=== PATIENT | female | born 1980 | race Caucasian/White ===

== ENCOUNTER 2017-06-25 18:04 | Inpatient (IN) ==
[~2017-06-25 18:04] MED LIST: Piperacillin/Tazobactam 3.375 GM in D5% in Water (Mini-Bag+) 100 ML IVPB ONE
[2017-06-25] MEDS ORDERED: 0.9 % Sodium Chloride 500 ML IVC ONE (18:09)
[2017-06-25] MEDS ORDERED: Piperacillin/Tazobactam 3.375 GM in D5% in Water (Mini-Bag+) 100 ML IVPB ONE (18:12)
--- NOTE | 2017-06-25 18:18 | Emergency Department Note ---
Disposition Clinical Impression: Cellulitis of left lower extremity Disposition: Admitted As Inpatient Condition: Good Referrals: NONE,PCP [Primary Care Provider] - Forms: Work/School Release, ED Satisfaction Letter Time of Disposition: 20:17 General Adult HPI - General Chief complaint: ED General Medical Stated complaint: felt faint Source: patient, EMS Limitations: no limitations - History of Present Illness HPI Narrative: Patient presents to the emergency department from work secondary to feeling lightheaded and dizzy as well as feeling generally ill. She states that she is not feeling well this afternoon though decided to go to work. She states that while she was at work she became lightheaded and dizzy and EMS was contacted. There was no syncope fall or injury. She states that she has generalized myalgias as well as some redness of the left lower extremity. She had been treated for cellulitis in this area in April. I reviewed her ED visit at that time, she had a Doppler which was negative for DVT and she was apparently treated successfully with Bactrim. She denies headache confusion or speech changes. She denies chest pain or shortness of breath. She denies abdominal pain nausea or vomiting. She denies dysuria or urinary frequency or urgency. She has had a cough that is been productive of some clear sputum. Denies hemoptysis. Pain Scale: 4 - Related Data Home Medications Medication Instructions Recorded Confirmed Estradiol [Estrace] 1 mg PO DAILY 11/19/15 06/25/17 Levothyroxine [Synthroid] 125 mcg PO 0630 11/19/15 06/25/17 Sulfamethoxazole/Trimeth DS 1 each PO BID 06/25/17 06/25/17 [Bactrim DS] glipiZIDE [Glipizide] 10 mg PO BID 06/25/17 06/25/17 metFORMIN [Glucophage] 500 mg PO BIDWM 06/25/17 06/25/17 Allergies Allergy/AdvReac Type Severity Reaction Status Date / Time No Known Allergies Allergy Verified 05/12/17 15:51 Constitutional: Reports: chills, weakness, other (Subjective fever) Eyes: Denies: eye pain, eye discharge, vision change ENT ED: Reports: congestion. Denies: ear pain, dysphagia Cardiovascular: Denies: chest pain, palpitations, dyspnea on exertion, orthopnea , edema, syncope Respiratory: Reports: cough. Denies: dyspnea, wheezes, hemoptysis Gastrointestinal: Denies: abdominal pain, nausea, vomiting, diarrhea, melena, hematochezia Genitourinary: Denies: urgency, dysuria, frequency, hematuria, discharge Musculoskeletal: Denies: back pain, neck pain, joint swelling Integumentary: Denies: rash Neurological: Denies: headache, weakness, numbness, paresthesias Endocrine: Reports: fatigue Hematological/Lymphatic: Denies: easy bleeding, easy bruising, lymphadenopathy Past Medical History - Past Medical History Source: patient Medical history: Reports: diabetes, migraine, thyroid disease Surgical history: Reports: (3), BERTHA/BSO Psychiatric history: Reports: no psych history [employer] history: Reports: endometriosis, bilateral tubal ligation - Social History Smoking Status: Never smoker Smokeless Tobacco Status: No Alcohol use: Reports: rarely Drug use: Reports: none Physical Exam - General Limitations: no limitations General appearance: alert, in no apparent distress (Resting comfortably cooperative and interactive and pleasant) - Head Head exam: atraumatic, normocephalic, normal inspection - Eye Eye exam: Present: normal appearance, PERRL, EOMI. Absent: scleral icterus, conjunctival injection - ENT ENT exam: normal exam, normal oropharynx, mucous membranes moist, TM's normal bilaterally - Neck Neck exam: Present: normal inspection, full ROM. Absent: tenderness, meningismus - Respiratory Respiratory exam: Present: normal lung sounds bilaterally - Cardiovascular Cardiovascular exam: Present: tachycardia, normal heart sounds - Abdominal Exam Abdominal exam: Present: soft, Non-Tender, normal bowel sounds. Absent: tenderness, distention, guarding, rebound, rigidity - Extremities Exam Extremities exam: Present: other (Trace edema bilateral lower extremities, there is some erythema overlying the anterior aspect of the left lower extremity which is warm to touch. No proximal streaking. No crepitus or evidence of necrotizing fasciitis). Absent: joint swelling, calf tenderness - Back Exam Back exam: Absent: tenderness, CVA tenderness (R), CVA tenderness (L) - Neurological Exam Neurological exam: Present: alert, oriented X3 - Psychiatric Psychiatric exam: Present: normal affect, normal mood - Skin Skin exam: Present: other (As per lower extremity exam, skin exam is otherwise normal) Course Course Narrative: Time 2014: Heart rate 97, systolic blood pressure 95 patient resting comfortably and feels much improved. Patient does have a left lower extremity cellulitis, she has been given Zosyn IV ordered vancomycin. Repeat exam, heart regular rate and rhythm and lungs are clear. I have given her a total of 1.5 L of fluid at this time, saline will be continued 150 mL per hour, patient does not meet severe sepsis criteria. I discussed the case with Dr. Root, patient will be admitted to his service for ongoing evaluation and treatment. Patient has no evidence of intrathoracic or intra-abdominal infectious process. No evidence of encephalitis meningitis or spinal cord abscess. Vital Signs Temperature 103 F H 06/25/17 18:07 Pulse Rate 118 06/25/17 18:07 Respiratory Rate 18 06/25/17 18:07 Blood Pressure 131/71 06/25/17 18:07 O2 Sat by Pulse Oximetry 96 06/25/17 18:07 Temperature 103 F H 06/25/17 18:07 Pulse Rate 99 06/25/17 20:00 Respiratory Rate 18 06/25/17 20:00 Blood Pressure 96/50 06/25/17 20:00 O2 Sat by Pulse Oximetry 95 06/25/17 20:00 Oxygen Delivery Oxygen Delivery Room Air Medical Decision Making - Lab Data Lab results reviewed: Yes I reviewed the patient's lab results. Result diagrams: 06/25/17 18:30 06/25/17 18:30 Lab Results 06/25/17 06/25/17 06/25/17 Range/Units 18:30 18:30 18:30 WBC 10.4 D (4.3-11.1) K/mcL RBC 4.77 (3.82-4.97) M/mcL Hgb 13.9 (11.5-15.4) g/dL Hct 43.1 (35.3-44.9) % MCV 90.4 (83.0-100.0) fL MCH 29.1 (28.0-33.3) pg MCHC 32.3 (31.6-35.5) g/dL RDW 13.8 (11.5-14.5) % Plt Count 147 (140-400) K/mcL MPV 10.7 (9.4-12.4) fL Immature Gran % 1.1 (0-4) % Seg Neutrophils % 92.5 % Lymphocytes % 2.6 % Monocytes % 2.9 % Eosinophils % 0.4 % Basophils % 0.5 % Neutrophils # 9.6 H (1.6-8.9) K/mcL Lymphocytes # 0.3 L (0.6-4.6) K/mcL Monocytes # 0.3 (0.0-1.3) K/mcL Eosinophils # 0.0 (0.0-0.6) K/mcL Basophils # 0.1 (0.0-0.2) K/mcL PT 12.0 (9.4-12.1) Seconds INR 1.1 APTT 31.8 (26.0-36.0) Seconds VBG Lactic Acid (0.5-2.2) mmol/L Sodium (136-145) mEq/L Potassium (3.5-4.5) mEq/L Chloride (98-109) mEq/L Carbon Dioxide (19-29) mEq/L BUN (7-20) mg/dL Creatinine (0.57-1.11) mg/dL Est GFR ( Amer) (> 60) Est GFR (Non-Af Amer) (> 60) BUN/Creatinine Ratio (6-26) Glucose (70-99) mg/dL Calculated Osmolality (280-300) Calcium (8.6-10.8) mg/dL Total Bilirubin 0.7 (0.2-1.2) mg/dL Direct Bilirubin 0.3 (0.0-0.5) mg/dL Indirect Bilirubin 0.4 (0.0-1.2) mg/dL AST 80 H (5-34) Units/L ALT 44 (0-55) Units/L Alkaline Phosphatase 134 H (38-126) Units/L Troponin I (0-0.03) ng/mL Serum Total Protein 7.6 (6.0-8.3) g/dL Albumin 3.5 (3.5-5.0) g/dL Globulin 4.1 H (2.4-3.5) g/dL Albumin/Globulin Ratio 0.9 L (1.1-2.2) Lipase 21 (8-78) Units/L Urine Color (Yellow) Urine Clarity (Clear) Urine pH (5.0-8.0) pH Units Ur Specific Ruth (1.010-1.025) Urine Protein (Neg-Trace) mg/dL Urine Glucose (UA) (Normal) mg/dL Urine Ketones (Negative) mg/dL Urine Blood (Negative) Urine Nitrite (Negative) Urine Bilirubin (Negative) Urine Urobilinogen (Normal) mg/dL Ur Leukocyte Esterase (Negative) Urine Microscopic WBC (0-3) per hpf Ur Squamous Epith Cells (None-Few) per lpf Urine Bacteria (None-Few) per hpf Urine Mucus (Few) Ur Culture Indicated? (NO) Urine Test (Negative) 06/25/17 06/25/17 06/25/17 Range/Units 18:30 18:30 18:30 WBC (4.3-11.1) K/mcL RBC (3.82-4.97) M/mcL Hgb (11.5-15.4) g/dL Hct (35.3-44.9) % MCV (83.0-100.0) fL MCH (28.0-33.3) pg MCHC (31.6-35.5) g/dL RDW (11.5-14.5) % Plt Count (140-400) K/mcL MPV (9.4-12.4) fL Immature Gran % (0-4) % Seg Neutrophils % % Lymphocytes % % Monocytes % % Eosinophils % % Basophils % % Neutrophils # (1.6-8.9) K/mcL Lymphocytes # (0.6-4.6) K/mcL Monocytes # (0.0-1.3) K/mcL Eosinophils # (0.0-0.6) K/mcL Basophils # (0.0-0.2) K/mcL PT (9.4-12.1) Seconds INR APTT (26.0-36.0) Seconds VBG Lactic Acid 3.4 H (0.5-2.2) mmol/L Sodium 140 (136-145) mEq/L Potassium 4.1 (3.5-4.5) mEq/L Chloride 104 (98-109) mEq/L Carbon Dioxide 22 (19-29) mEq/L BUN 10 (7-20) mg/dL Creatinine 0.91 (0.57-1.11) mg/dL Est GFR ( Amer) > 60 (> 60) Est GFR (Non-Af Amer) > 60 (> 60) BUN/Creatinine Ratio 11 (6-26) Glucose 185 H (70-99) mg/dL Calculated Osmolality 294 (280-300) Calcium 9.3 (8.6-10.8) mg/dL Total Bilirubin (0.2-1.2) mg/dL Direct Bilirubin (0.0-0.5) mg/dL Indirect Bilirubin (0.0-1.2) mg/dL AST (5-34) Units/L ALT (0-55) Units/L Alkaline Phosphatase (38-126) Units/L Troponin I 0.01 (0-0.03) ng/mL Serum Total Protein (6.0-8.3) g/dL Albumin (3.5-5.0) g/dL Globulin (2.4-3.5) g/dL Albumin/Globulin Ratio (1.1-2.2) Lipase (8-78) Units/L Urine Color (Yellow) Urine Clarity (Clear) Urine pH (5.0-8.0) pH Units Ur Specific Ruth (1.010-1.025) Urine Protein (Neg-Trace) mg/dL Urine Glucose (UA) (Normal) mg/dL Urine Ketones (Negative) mg/dL Urine Blood (Negative) Urine Nitrite (Negative) Urine Bilirubin (Negative) Urine Urobilinogen (Normal) mg/dL Ur Leukocyte Esterase (Negative) Urine Microscopic WBC (0-3) per hpf Ur Squamous Epith Cells (None-Few) per lpf Urine Bacteria (None-Few) per hpf Urine Mucus (Few) Ur Culture Indicated? (NO) Urine Test (Negative) 06/25/17 06/25/17 Range/Units 19:00 19:00 WBC (4.3-11.1) K/mcL RBC (3.82-4.97) M/mcL Hgb (11.5-15.4) g/dL Hct (35.3-44.9) % MCV (83.0-100.0) fL MCH (28.0-33.3) pg MCHC (31.6-35.5) g/dL RDW (11.5-14.5) % Plt Count (140-400) K/mcL MPV (9.4-12.4) fL Immature Gran % (0-4) % Seg Neutrophils % % Lymphocytes % % Monocytes % % Eosinophils % % Basophils % % Neutrophils # (1.6-8.9) K/mcL Lymphocytes # (0.6-4.6) K/mcL Monocytes # (0.0-1.3) K/mcL Eosinophils # (0.0-0.6) K/mcL Basophils # (0.0-0.2) K/mcL PT (9.4-12.1) Seconds INR APTT (26.0-36.0) Seconds VBG Lactic Acid (0.5-2.2) mmol/L Sodium (136-145) mEq/L Potassium (3.5-4.5) mEq/L Chloride (98-109) mEq/L Carbon Dioxide (19-29) mEq/L BUN (7-20) mg/dL Creatinine (0.57-1.11) mg/dL Est GFR ( Amer) (> 60) Est GFR (Non-Af Amer) (> 60) BUN/Creatinine Ratio (6-26) Glucose (70-99) mg/dL Calculated Osmolality (280-300) Calcium (8.6-10.8) mg/dL Total Bilirubin (0.2-1.2) mg/dL Direct Bilirubin (0.0-0.5) mg/dL Indirect Bilirubin (0.0-1.2) mg/dL AST (5-34) Units/L ALT (0-55) Units/L Alkaline Phosphatase (38-126) Units/L Troponin I (0-0.03) ng/mL Serum Total Protein (6.0-8.3) g/dL Albumin (3.5-5.0) g/dL Globulin (2.4-3.5) g/dL Albumin/Globulin Ratio (1.1-2.2) Lipase (8-78) Units/L Urine Color Dark Yellow (Yellow) Urine Clarity Clear (Clear) Urine pH 5.5 (5.0-8.0) pH Units Ur Specific Ruth 1.020 (1.010-1.025) Urine Protein Negative (Neg-Trace) mg/dL Urine Glucose (UA) Normal (Normal) mg/dL Urine Ketones Trace H (Negative) mg/dL Urine Blood Negative (Negative) Urine Nitrite Negative (Negative) Urine Bilirubin Small H (Negative) Urine Urobilinogen Normal (Normal) mg/dL Ur Leukocyte Esterase Trace H (Negative) Urine Microscopic WBC 0-3 (0-3) per hpf Ur Squamous Epith Cells Few (None-Few) per lpf Urine Bacteria Few (None-Few) per hpf Urine Mucus Few (Few) Ur Culture Indicated? YES A (NO) Urine Test Negative (Negative) ITS Impressions Chest X-Ray 06/25/17 18:10 IMPRESSION: No acute process. D/ / Ryan Hanson MD / Ryan Hanson MD Interpreting Provider: Ryan Hanson MD - Radiology Data Radiology results reviewed: Yes I reviewed the patient's radiology results. - EKG Data EKG #1 EKG attestation: Yes I reviewed and interpreted this EKG. EKG shows normal: sinus rhythm Rate: tachycardia (Sinus tachycardia at a rate of 110. No acute ST segment or T -wave changes. No arrhythmia.)
[2017-06-25 18:39] LABS: Basophils # 0.1 K/mcL (0.0-0.2); Basophils % 0.5 %; Eosinophils % 0.4 %; Hematocrit 43.1 % (35.3-44.9); Hemoglobin 13.9 g/dL (11.5-15.4); Immature Granulocytes % 1.1 % (0-4); Lymphocytes # 0.3 K/mcL (0.6-4.6); Lymphocytes % 2.6 %; Mean Corpuscular HGB Conc 32.3 g/dL (31.6-35.5); Mean Corpuscular Hemoglobin 29.1 pg (28.0-33.3); Mean Corpuscular Volume 90.4 fL (83.0-100.0); Mean Platelet Volume 10.7 fL (9.4-12.4); Monocytes # 0.3 K/mcL (0.0-1.3); Monocytes % 2.9 %; Neutrophils # 9.6 K/mcL (1.6-8.9); Platelet Count 147 K/mcL (140-400); Red Blood Count 4.77 M/mcL (3.82-4.97); Red Cell Distribution Width 13.8 % (11.5-14.5); Segmented Neutrophils % 92.5 %
[2017-06-25 18:42] LABS: INR 1.1
[2017-06-25 18:45] LABS: Activated Partial Thrombo Time 31.8 Seconds (26.0-36.0)
[2017-06-25] MEDS ORDERED: 0.9 % Sodium Chloride 1,000 ML IVC ONE ×3 (18:48→18:53)
[2017-06-25 18:53] LABS: BUN/Creatinine Ratio 11 (6-26); Blood Urea Nitrogen 10 mg/dL (7-20); Calcium 9.3 mg/dL (8.6-10.8); Carbon Dioxide 22 mEq/L (19-29); Chloride 104 mEq/L (98-109); Glucose 185 mg/dL (70-99); Osmolality,Calculated 294 (280-300); Potassium 4.1 mEq/L (3.5-4.5); Sodium 140 mEq/L (136-145); eGFR For African Americans > 60 (> 60); eGFR For Non-African Americans > 60 (> 60)
[2017-06-25 18:54] LABS: Albumin 3.5 g/dL (3.5-5.0); Albumin/Globulin Ratio 0.9 (1.1-2.2); Bilirubin,Direct 0.3 mg/dL (0.0-0.5); Bilirubin,Indirect 0.4 mg/dL (0.0-1.2); Bilirubin,Total 0.7 mg/dL (0.2-1.2); Globulin 4.1 g/dL (2.4-3.5); Total Protein 7.6 g/dL (6.0-8.3)
[2017-06-25 19:07] LABS: Bilirubin,Urine Small (Negative); Blood,Urine Negative (Negative); Clarity,Urine Clear (Clear); Color,Urine Dark Yellow (Yellow); Glucose,Urine (UA) Normal (Normal); Ketones,Urine Trace mg/dL (Negative); Leukocyte Esterase,Urine Trace (Negative); Nitrite,Urine Negative (Negative); PH,Urine 5.5 pH Units (5.0-8.0); Protein,Urine Negative (Neg-Trace); Urobilinogen,Urine Normal (Normal)
[2017-06-25 19:16] LABS: Bacteria,Urine Few per hpf (None-Few); Mucus,Urine Few (Few); Squamous Epithelial Cell,Urine Few per lpf (None-Few); WBC,Urine 0-3 per hpf (0-3)
[2017-06-25] MEDS ORDERED: Vancomycin 1,750 MG in D5% in Water 250 ML IVPB ONE (20:14)
[2017-06-25] MEDS ORDERED: Naloxone 0.4 MG/ML INJ IVP PRN (20:17)
[2017-06-25] MEDS ORDERED: *HR* Enoxaparin 40 MG/0.4 ML SYRINGE SQ ONE (20:34)
[2017-06-25] MEDS ORDERED: Vancomycin 1,000 MG in D5% in Water 250 ML IVPB ONE (21:02)
[2017-06-25] MEDS: *HR* GlipiZIDE 5 MG TABLET PO SCH (21:37)
[2017-06-25] MEDS ORDERED: Vancomycin 750 MG in D5% in Water 250 ML IVPB ONE (22:30)
[2017-06-26 05:17] LABS: Basophils % 0.3 %; Eosinophils # 0.1 K/mcL (0.0-0.6); Eosinophils % 1.7 %; Hematocrit 36.3 % (35.3-44.9); Hemoglobin 12.1 g/dL (11.5-15.4); Immature Granulocytes % 0.5 % (0-4); Lymphocytes # 0.6 K/mcL (0.6-4.6); Lymphocytes % 9.2 %; Mean Corpuscular HGB Conc 33.3 g/dL (31.6-35.5); Mean Corpuscular Hemoglobin 30.2 pg (28.0-33.3); Mean Corpuscular Volume 90.5 fL (83.0-100.0); Mean Platelet Volume 11.2 fL (9.4-12.4); Monocytes # 0.3 K/mcL (0.0-1.3); Monocytes % 4.9 %; Neutrophils # 5.5 K/mcL (1.6-8.9); Platelet Count 128 K/mcL (140-400); Red Blood Count 4.01 M/mcL (3.82-4.97); Red Cell Distribution Width 14.1 % (11.5-14.5); Segmented Neutrophils % 83.4 %
[2017-06-26 05:33] LABS: BUN/Creatinine Ratio 14 (6-26); Blood Urea Nitrogen 10 mg/dL (7-20); Calcium 8.2 mg/dL (8.6-10.8); Carbon Dioxide 22 mEq/L (19-29); Chloride 108 mEq/L (98-109); Glucose 86 mg/dL (70-99); Osmolality,Calculated 288 (280-300); Potassium 4.1 mEq/L (3.5-4.5); Sodium 140 mEq/L (136-145); eGFR For African Americans > 60 (> 60); eGFR For Non-African Americans > 60 (> 60)
[2017-06-26] MEDS: Acetaminophen 325 MG TABLET PO PRN (05:39)
[2017-06-26] MEDS: *HR* Metformin 500 MG TABLET PO SCH ×2 (08:45→17:50)
[2017-06-26] MEDS: *HR* GlipiZIDE 5 MG TABLET PO SCH ×2 (08:45→21:45)
[2017-06-26] MEDS: Piperacillin/Tazobactam 3.375 GM in D5% in Water (Mini-Bag+) 100 ML IVPB SCH (17:50)
--- NOTE | 2017-06-26 19:35 | Internal Med History&Physical ---
Date of Encounter: 06/26/17 Time of Encounter: 17:15 Assessment and Plan (1) Cellulitis of left lower extremity Current visit: Yes Status: Acute Patient was initially admitted on vancomycin IV and IV Zosyn. We will continue IV Zosyn and change the vancomycin to oral doxycycline (2) Sepsis Current visit: Yes Status: Acute Issue lactic acid level was up and she was hypotensive she needed resuscitated by IV boluses. Continue IV fluids fluids. Like cultures are pending. Her initial lactate was 3.4 and 4 hours later to down to 2.1 Qualifiers: Sepsis type: sepsis due to unspecified organism Qualified Code(s): A41.9 - Sepsis, unspecified organism (3) Fistula Current visit: Yes Status: Acute This shows in the incision area on the barrier cream and absorbing pad (4) Thrombocytopenia Current visit: Yes Status: Acute Unsure on the lining cause will follow up CBC (5) Elevated liver enzymes Current visit: Yes Status: Acute Follow-up lab level confirmed decreasing (6) Neutrophilia Current visit: Yes Status: Acute Follow-up CBC (7) Elevated lactic acid level Current visit: Yes Status: Acute I can level came back down to normal which is good (8) DM type 2 (diabetes mellitus, type 2) Current visit: Yes Status: Acute Continue the metformin and glipizide Qualifiers: Diabetes mellitus complication status: with unspecified complications 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 Cardozo is a 36 year old female presented emergency room after feeling weak and went to work. She reports she almost collapsed. She reports they said she was red at work and she became pale and red again. Her blood pressure was 126/45 and pulse 135 work. She reports recent episode of shingles and left jenkins cellulitis was given antibiotic and she thinks an antiviral. She apparently recently went off Bactrim double strength is initially drawn this antibiotic to cover for MRSA. Discussed not putting her on another antibiotic that she would like to be put on doxycycline until blood cultures come back. She denied having fevers chills nausea vomiting diarrhea she did feel little weak fatigued lightheaded and short chest pain or shortness of breath, rest review of systems is negative. He is unsure why she might have developed a cellulitis. Only on oral antibiotics she may not have completely gotten rid of the cellulitis last time. There was a little follicle had some redness might be the entry area through the skin.'s also concerned because she seeps fluid from her incision site from her . She currently talked to Dr. Posadas as part of the [facility] SPECIALIST who recommended that she just lives with that. He thought would be too risky to open her up in the incision site because of her history of scar tissue. I recommend she consider asking for referral to tertiary care center with a take care more complex cases and see what their opinion is. Recommend she use a barrier cream and pads until it can be surgically corrected. Answer questions addressed her concerns. Past Med Surg Social Fam HX - Past Medical History Source: patient Medical history: diabetes (Type II non-insulin), migraine, thyroid disease ( Hypothyroidism), other (Iron deficiency anemia, history of recent cellulitis and shingles) Psychiatric history: no psych history - Past Surgical History Surgical History: , BERTHA/BSO (History of ectopic ,), other ( Tonsil and adenoidectomy, bilateral ear tubes) - Social History Smoking Status: Never smoker Smokeless Tobacco Status: No Alcohol use: rarely Drug use: none Occupational status: employed Current living situation: Home, With Family Activity Level: Independent ambulation - Family History Father Living Status: Still Living Hx Family Endocrine Disorder: Yes (Impaired fasting glucose, factor V deficiency ) Mother Living Status: Still Living Hx Family Endocrine Disorder: Yes (DM 2, hypothyroidism) Grandfather Hx Family Cardiac Disorders: Yes (NH, stents) Hx Family Cancer: Yes (Bladder cancer) Internal Medicine - H&P: Meds Estradiol [Estrace] 1 mg PO DAILY 11/19/15 [History] Levothyroxine [Synthroid] 125 mcg PO 0630 11/19/15 [History] Sulfamethoxazole/Trimeth DS [Bactrim DS] 1 each PO BID 06/25/17 [History] glipiZIDE [Glipizide] 10 mg PO BID 06/25/17 [History] metFORMIN [Glucophage] 500 mg PO BIDWM 06/25/17 [History] 3 Allergy/AdvReac Type Severity Reaction Status Date / Time No Known Allergies Allergy Verified 05/12/17 15:51 All Systems PM: A 10-system review of systems was performed and is negative for pertinent findings except as documented above in the HPI. - Constitutional Vitals: Temp Pulse Resp BP Pulse Ox 98.5 F 77 19 99/67 98 06/26/17 18:00 06/26/17 18:00 06/26/17 18:00 06/26/17 18:00 06/26/17 18:00 - Head Head exam: Present: atraumatic, normocephalic - Eye Eye exam: Present: PERRL, conjuntiva pink, sclera anicteric Pupils: Present: PERRL - Neck Neck exam general surgery: Present: supple, trachea midline. Absent: lymphadenopathy - Respiratory Respiratory exam: Present: CTAB. Absent: accessory muscle use, rales, rhonchi, wheezes - Cardiovascular Cardiovascular exam: Present: RRR, +S1, +S2. Absent: diastolic murmur, gallop, rubs, systolic murmur - GI/Abdominal GI/Abdominal exam: Present: normal bowel sounds, soft, no peritoneal signs. Absent: distended, tenderness - Extremities Exam Extremities exam: Present: warm, radial pulses palpable and symmetrical. Absent : calf tenderness, cyanotic, pedal edema Additional comments: Left jenkins area had discoloration but no redness or tenderness at this point - Neurological Exam Neurological exam: Present: CN II-XII intact, oriented X3, no focal deficits. Absent: facial droop, speech deficit - Skin Skin exam: Present: dry, intact Internal Med - H&P Results - Labs CBC & Chem 7: 06/26/17 04:55 06/26/17 04:55 Labs: Short CBC 06/26/17 Range/Units 04:55 WBC 6.5 (4.3-11.1) K/mcL Hgb 12.1 D (11.5-15.4) g/dL Hct 36.3 (35.3-44.9) % Plt Count 128 L (140-400) K/mcL Neutrophils # 5.5 (1.6-8.9) K/mcL BMP 06/26/17 04:55 Sodium 140 Potassium 4.1 Chloride 108 Carbon Dioxide 22 BUN 10 Creatinine 0.70 Glucose 86 Calcium 8.2 L
[2017-06-26] MEDS ORDERED: Sulfamethoxazole/Trimeth DS 1 EACH TABLET PO SCH (21:00)
[2017-06-26] MEDS: Doxycycline 100 MG CAPSULE PO SCH (21:45)
[2017-06-27] MEDS: Piperacillin/Tazobactam 3.375 GM in D5% in Water (Mini-Bag+) 100 ML IVPB SCH ×3 (02:43→18:13)
[2017-06-27] MEDS: *HR* Metformin 500 MG TABLET PO SCH ×2 (08:34→17:24)
[2017-06-27] MEDS: Doxycycline 100 MG CAPSULE PO SCH ×2 (08:34→20:28)
[2017-06-27] MEDS: *HR* GlipiZIDE 5 MG TABLET PO SCH ×2 (08:35→20:28)
[2017-06-27] MEDS: Acetaminophen 325 MG TABLET PO PRN (08:36)
--- NOTE | 2017-06-27 15:09 | Internal Med Progress Note ---
Date of Encounter: 06/27/17 Time of Encounter: 14:55 - Assessment and plan (1) Cellulitis of left lower extremity Current Visit: Yes Status: Acute Assessment and plan: June 27. Continue Zosyn and doxycycline. Anticipate discharge home tomorrow if stable. (2) Hypothyroidism Current Visit: Yes Status: Acute Assessment and plan: June 27. Synthroid was increased to 200 g daily. Qualifiers: Hypothyroidism type: unspecified Qualified Code(s): E03.9 - Hypothyroidism , unspecified (3) Sepsis Current Visit: Yes Status: Acute Assessment and plan: June 27. Continue antibiotics as above. Anticipate discharge home tomorrow on oral antibiotics. Qualifiers: Sepsis type: sepsis due to unspecified organism Qualified Code(s): A41.9 - Sepsis, unspecified organism (4) DM type 2 (diabetes mellitus, type 2) Current Visit: Yes Status: Chronic Assessment and plan: June 27. Hemoglobin A1c was acceptable at 6.6% on 06/24/2017. Continue glipizide and Glucophage Qualifiers: Diabetes mellitus complication status: with unspecified complications Diabetes mellitus chcf insulin use: without chcf use Qualified Code( s): E11.8 - Type 2 diabetes mellitus with unspecified complications - Subjective Interval history: June 27. She has no new complaints and feels better - Constitutional Vitals: Temp Pulse Resp BP Pulse Ox 98.0 F 58 17 101/70 97 06/27/17 07:08 06/27/17 07:08 06/27/17 07:08 06/27/17 07:08 06/27/17 07:08 Exam: She is resting comfortably in bed. There is no obvious erythema now of the legs. Heart is regular without murmurs gallops or ectopics. Lungs were clear. I reviewed her medications and lab results. Internal Medicine: Result - Labs CBC & Chem 7: 06/26/17 04:55 06/26/17 04:55 - ABG Interpretation ABG results: PT/INR, D-dimer PT 12.0 Seconds (9.4-12.1) 06/25/17 18:30 Consult Discharge Plan - Plan Referrals: NONE,PCP [Primary Care Provider] - 1 week
[2017-06-27] MEDS: Lactobacillus 1 EACH CAP.SPRINK PO SCH (20:27)
[2017-06-28] MEDS: Piperacillin/Tazobactam 3.375 GM in D5% in Water (Mini-Bag+) 100 ML IVPB SCH (03:31)
[2017-06-28 06:46] VITALS: BP 105/74
[2017-06-28] MEDS: *HR* GlipiZIDE 5 MG TABLET PO SCH (07:39)
[2017-06-28] MEDS: Doxycycline 100 MG CAPSULE PO SCH (07:39)
[2017-06-28] MEDS: Lactobacillus 1 EACH CAP.SPRINK PO SCH (07:39)
[2017-06-28] MEDS: *HR* Metformin 500 MG TABLET PO SCH (07:40)
--- NOTE | 2017-06-28 09:23 | Discharge Summary ---
Date of Encounter: 06/28/17 Time of Encounter: 09:15 - Discharge Diagnosis (1) Cellulitis of left lower extremity Priority: Primary Status: Acute (2) Sepsis Priority: Secondary Status: Resolved Qualifiers: Sepsis type: sepsis due to unspecified organism Qualified Code(s): A41.9 - Sepsis, unspecified organism (3) Hypothyroidism Priority: Secondary Status: Chronic Qualifiers: Hypothyroidism type: unspecified Qualified Code(s): E03.9 - Hypothyroidism , unspecified (4) DM type 2 (diabetes mellitus, type 2) Priority: Secondary Status: Chronic Qualifiers: Diabetes mellitus complication status: with unspecified complications Diabetes mellitus mcc insulin use: without mcc use Qualified Code( s): E11.8 - Type 2 diabetes mellitus with unspecified complications - Discharge Medications Prescriptions: Amoxicillin/Clavulanate [Augmentin] 875 mg PO BIDWM #4 tablet Doxycycline 100 mg PO BID #4 Lactobacillus [Culturelle] 1 each PO BID #4 Home Medications: Estradiol [Estrace] 1 mg PO DAILY 11/19/15 [History] glipiZIDE [Glipizide] 10 mg PO BID 06/25/17 [History] metFORMIN [Glucophage] 500 mg PO BIDWM 06/25/17 [History] Amoxicillin/Clavulanate [Augmentin] 875 mg PO BIDWM #4 tablet 06/28/17 [Rx] Doxycycline 100 mg PO BID #4 06/28/17 [Rx] Lactobacillus [Culturelle] 1 each PO BID #4 06/28/17 [Rx] Levothyroxine [Synthroid] 200 mcg PO 0630 tab 06/28/17 [Rx] Allergies/Adverse Reactions: 3 Allergy/AdvReac Type Severity Reaction Status Date / Time No Known Allergies Allergy Verified 05/12/17 15:51 Date of admission: 06/27/17 15:12 Primary care physician: PCP NONE - Patient Status Disposition: Home, Self-Care Condition: Good Overall status at discharge: patient is progressing back to baseline - Discharge Instructions Follow Up With: NONE,PCP [Primary Care Provider] - 1 week - Diet and Activity Activity: resume usual activities as tolerated Diet: diabetic diet Hospital course: Ms. Cardozo is a 36 year old female who came to emergency room with evidence of left lower extremity cellulitis with sepsis. Dr. Root saw her on June 26 and performed a history and physical. I assumed her care on June 27. She was started on Zosyn and doxycycline. By the time I saw her her cellulitis had essentially resolved. She had no new problems and on June 28 was stable for discharge home. She will follow with her PCP within one week. - Time Spent with Patient Total time spent providing and/or coordinating discharge services: - Constitutional Vitals: Temp Pulse Resp BP Pulse Ox 97.9 F 69 18 105/74 95 06/28/17 06:43 06/28/17 06:43 06/28/17 06:43 06/28/17 06:43 06/28/17 06:43
--- NOTE | 2017-06-29 08:15 | Electrocardiograph Report ---
[address] [id number] Test Date: 2017-06-25 Pat Name: Kacey Cardozo Department: [id number] Room: [facility] Gender: F Line Fixer: [id number] : 1980 Requested By: Jossue Alas Order Number: [id number] Reading MD: Rita Gross Measurements Intervals [place] Rate: 110 P: 37 MN: 150 QRS: 53 QRSD: 97 T: 18 QT: 332 QTc: 397 Interpretive Statements SINUS TACHYCARDIA NONSPECIFIC T-WAVE ABNORMALITY ABNORMAL RHYTHM ECG Electronically Signed On 06-28-2017 11:06:26 EDT by Rita Gross
== END 2017-06-28 10:17 | disposition home or self-care (01) | DRG 720 ==
LOC: EMEROOPIK 18:04 → INPPIK 18:04
PROVIDERS: ADMIT Internal Medicine; ATTEND Internal Medicine